=== PATIENT | female | born 1995 | race African-American/Black ===

== ENCOUNTER 2021-10-09 08:45 | Emergency (ER) | payer OTHER ==
[~2021-10-09] VITALS: Ht 162.6 cm; Wt 70.0 kg
[~2021-10-09 08:45] MED LIST: FERR-43 PO; PREN-88 PO
[2021-10-09 08:49] VITALS: BP 138/85
[2021-10-09] MEDS ORDERED: FAMOTIDINE 20MG/2ML VIAL IV ONE (09:15)
[2021-10-09] MEDS ORDERED: CLINDAMYCIN 600 MG in DEXTROSE 5% WATER 50 ML IV ONE (09:15)
[2021-10-09] MEDS ORDERED: DIPHENHYDRAMINE 50MG/ML VIAL IV ONE (09:15)
[2021-10-09] MEDS ORDERED: METHYLPREDNISOLONE SOD SUCC 125 MG/2 ML VIAL IV ONE (09:15)
[2021-10-09] MEDS ORDERED: ACETAMINOPHEN 325MG TABLET PO ONE (09:15)
[2021-10-09 09:34] LABS: BASOPHILS % 0.3 % (0.0-2.0); EOSINOPHILS % 0.2 % (0.0-5.0); HEMATOCRIT. 40.9 % (36.0-48.0); HEMOGLOBIN. 13.9 g/dL (12.0-16.0); LYMPHOCYTES % 8.4 % (20.0-50.0); MEAN CORPUSCULAR HEMOGLOBIN 30.1 pg (28.0-32.0); MEAN CORPUSCULAR VOLUME 88.8 fL (81.0-99.0); MEAN PLATELET VOLUME 7.4 fl (7.4-10.4); MONOCYTES % 5.9 % (2.0-8.0); NEUTROPHILS % 85.2 % (40.0-76.0); PLATELET 339 x1000/uL (130-400); RED BLOOD CELL COUNT 4.61 mill/uL (4.2-5.4); RED CELL DISTRIBUTION WIDTH 13.1 % (11.6-14.6)
[2021-10-09 09:42] LABS: CHLORIDE 109 mEq/L (98-107)
[2021-10-09 09:43] LABS: HCG SCREEN NEGATIVE
[2021-10-09] MEDS: CLINDAMYCIN 600MG PREMIX 50 ML IV SCH ×2 (09:59→10:00)
[2021-10-09] MEDS ORDERED: DIPH25CA83 MT (11:15)
[2021-10-09] MEDS ORDERED: P20 MT (11:15)
[2021-10-09] MEDS ORDERED: CLIN-116 MT (11:15)
== END 2021-10-09 11:29 | disposition home or self-care (01) ==
LOC: ER 08:45
DX: K04.7 Periapical abscess without sinus (principal); F12.10 Cannabis abuse, uncomplicated; Z88.0 Allergy status to penicillin
CPT/HCPCS: 36415; 80053; 81025; 84703; 85025; 96374; 96375; 99284; J1200; J2930; J3490; J7060